=== PATIENT | male | born 2000 | race African-American/Black ===

== ENCOUNTER 2022-06-04 22:50 | Emergency (ER) | payer MEDICAID ==
[~2022-06-04] VITALS: Ht 180.3 cm; Wt 83.9 kg
[2022-06-04 23:01] VITALS: BP 132/81
[2022-06-05] MEDS ORDERED: TC025C15 TP (00:37)
[2022-06-05] MEDS ORDERED: DIPH25TA62 MT (00:37)
== END 2022-06-05 01:26 | disposition home or self-care (01) ==
LOC: ER 22:50
DX: R21 Rash and other nonspecific skin eruption (principal); Z90.49 Acquired absence of other specified parts of digestive tract
CPT/HCPCS: 99283

== ENCOUNTER 2022-09-20 00:24 | Emergency (ER) | payer MEDICAID ==
[~2022-09-20] VITALS: Ht 180.3 cm; Wt 85.0 kg
[~2022-09-20 00:24] MED LIST: DIPH25TA62 MT; TC025C15 TP
[2022-09-20 00:36] VITALS: BP 129/80
[2022-09-20 05:02] LABS: BASOPHILS % 0.7 % (0.0-2.0); EOSINOPHILS % 8.2 % (0.0-5.0); HEMATOCRIT. 44.4 % (42.0-52.0); HEMOGLOBIN. 14.9 g/dL (14.0-18.0); LYMPHOCYTES % 35.4 % (20.0-50.0); MEAN CORPUSCULAR HEMOGLOBIN 28.7 pg (28.0-32.0); MEAN CORPUSCULAR VOLUME 85.4 fL (80.0-94.0); MEAN PLATELET VOLUME 8.5 fl (7.4-10.4); MONOCYTES % 7.4 % (2.0-8.0); NEUTROPHILS % 48.3 % (40.0-76.0); PLATELET 321 x1000/uL (130-400); RED BLOOD CELL COUNT 5.21 mill/uL (4.7-6.1); RED CELL DISTRIBUTION WIDTH 13.5 % (11.6-14.6)
[2022-09-20 05:18] LABS: CHLORIDE 104 mEq/L (98-107)
[2022-09-20] MEDS ORDERED: FAMO20TA8 MT (06:13)
== END 2022-09-20 06:40 | disposition home or self-care (01) ==
LOC: ER 00:24
DX: R07.89 Other chest pain (principal); Z90.49 Acquired absence of other specified parts of digestive tract
CPT/HCPCS: 36415; 71045; 80048; 84484; 85025; 93005; 99285

== ENCOUNTER 2023-09-03 08:28 | Emergency (ER) | payer MEDICAID ==
[~2023-09-03] VITALS: Ht 180.3 cm; Wt 91.0 kg
[~2023-09-03 08:28] MED LIST changes: +FAMO20TA8 MT
[2023-09-03 08:41] VITALS: O2SAT 100
[2023-09-03] MEDS ORDERED: METRONIDAZOLE 500MG TABLET PO ONE (10:45)
[2023-09-03 11:53] VITALS: BP 158/80; PULSE 68; RESP 18; TEMP 98.1
== END 2023-09-03 11:57 | disposition home or self-care (01) ==
LOC: ER 08:28
DX: Z20.2 Contact with and (suspected) exposure to infections with a predominantly sexual mode of transmission (principal)
CPT/HCPCS: 87491; 87591; 99283